=== PATIENT | female | born 1960 | race Caucasian/White ===

== ENCOUNTER 2021-05-06 07:59 | Day surgery (SDC) | payer OTHER ==
[2021-05-01 16:19] VITALS: BMI 50.1
[2021-05-06] MEDS ORDERED: PROPOFOL 20 ML ONE ×4 (08:44)
[2021-05-06] MEDS ORDERED: LIDOCAINE HCL/PF 2% SDV 5ML VIAL ONE (08:44)
[2021-05-06 09:53] VITALS: TEMP 97.2
[2021-05-06 10:25] VITALS: BP 133/77; PULSE 84
== END 2021-05-06 10:25 | disposition home or self-care (01) ==
LOC: FASU-ENDO 07:59
PROVIDERS: ATTEND Internal Medicine Gastroenterology
PROC: 0DB98ZX Excision of Duodenum, Via Natural or Artificial Opening Endoscopic, Diagnostic (ICD-10-PCS; 2021-05-06)
PROC: 0DB68ZX Excision of Stomach, Via Natural or Artificial Opening Endoscopic, Diagnostic (ICD-10-PCS; 2021-05-06)
PROC: 0DJD8ZZ Inspection of Lower Intestinal Tract, Via Natural or Artificial Opening Endoscopic (ICD-10-PCS; principal; 2021-05-06 08:54)
DX: Z12.11 Encounter for screening for malignant neoplasm of colon (principal); K29.50 Unspecified chronic gastritis without bleeding; K29.80 Duodenitis without bleeding; K21.00 Gastro-esophageal reflux disease with esophagitis, without bleeding; D64.9 Anemia, unspecified; Z80.0 Family history of malignant neoplasm of digestive organs
CPT/HCPCS: 82962; 88305-TC; 88342-TC